=== PATIENT | female | born 1995 | race Caucasian/White ===

== ENCOUNTER 2018-02-16 18:53 | Emergency (ER) | payer OTHER, SELFPAY ==
[2018-02-16 18:55] VITALS: BP 141/89; PULSE 72; RESP 16; TEMP 37.2; O2SAT 100; BMI 35.9
--- NOTE | 2018-02-16 21:07 | CT_ITS ---
STUDY: CT ABDOMEN AND PELVIS WITHOUT CONTRAST REASON FOR EXAM: Female, 22 years old. Pain in upper abdomen. RADIATION DOSAGE (If Supplied By Facility): CTDIvol = ( 17.40 ) mGy, DLP = ( 925.72 ) mGycm TECHNIQUE: Transaxial images were obtained from the dome of the diaphragm to the symphysis pubis without oral contrast, and without intravenous contrast. Sagittal and coronal images were reconstructed. Individualized dose optimization techniques were used for this CT. COMPARISON: None. FINDINGS: The visualized lung bases are unremarkable. The visualized portions of the heart are within normal limits. Normal liver. Normal gallbladder and extrahepatic biliary system. Normal spleen. Normal pancreas. Normal bilateral adrenal glands. Normal right kidney. Normal left kidney. Normal visualized stomach. Normal small intestine. Normal colon. The appendix is visualized and appears normal. Normal abdominal aorta. Normal inferior vena cava. Normal retroperitoneum. Normal urinary bladder. Normal visualized uterus. Normal abdominal wall. Normal osseous structures. CT/Abdomen/Pel W ORAL Cont Only IMPRESSION: No evidence of acute intra-abdominal process or focal inflammation. Electronically Signed: Irineo Durand DO at 23:33 EDT , Service support ,
[2018-02-16 21:36] VITALS: BP 136/67; PULSE 72; RESP 18; O2SAT 100
[2018-02-16 21:36] LABS: Absolute Lymphocyte Count 1.75 X10^3/ul (0.83-4.51); Absolute Neutrophil Count 4.9 X10^3/uL (2.0-7.7); Basophil# 0.01 X10^3/uL; Basophil% 0.1 % (0-1); Eosinophil# 0.04 X10^3/uL; Eosinophils% 0.6 % (0-5); Hematocrit 37.7 % (37-47); Hemoglobin 12.2 g/dl (12.0-15.0); Lymphocyte # 1.75 X10^3/ul (4.0); Lymphocyte % 24.2 % (19-41); Mean Corp Hgb Conc 32.4 g/gl (32-36); Mean Corpuscular Volume 86.5 fL (81-99); Mean Platelet Vol. 10.4 fl (6.2-12.0); Monocyte% 6.9 % (0-10); Neutrophil # 4.94 X10^3/uL (2.7-7.7); Neutrophil % 68.2 % (47-70); Platelet Count 227 K/mm3 (150-450); RBC Distribution Width CV 14.4 % (11.6-14.6); RBC Distribution Width SD 45.4 fl (35.1-43.9); Red Blood Count 4.36 M/mm3 (4.2-5.4); White Blood Count 7.2 K/mm3 (4.4-11.0)
[2018-02-16 21:39] LABS: Bacteria 0 SEEN /hpf (None Seen); Mucous, Urine 0 SEEN /hpf (<or=2+); Red Blood Cells-Urine 0 SEEN /hpf (0-5); White Blood Cells 0 SEEN /hpf (0-5)
[2018-02-16 21:45] LABS: Color, Urine Yellow (Yellow); Glucose, Dipstick Normal (Normal); Ketone-Dipstick Negative (Negative); Leukocyte Esterase-Dipstick Negative /ul (Negative); Nitrite-Dipstick Negative (Negative); Occult Blood-Urine Negative /ul (Negative); Protein-Dipstick Negative (Negative); Urine Bilirubin Dipstick Negative (Negative); Urine Clarity Clear (Clear); Urine Urobilinogen Normal (Normal)
[2018-02-16 21:53] LABS: ALB/GLOB Ratio 1.2 RATIO (0.9-2.4); AST(SGOT) 14 U/L (15-37); Alanine Aminotransfer ALT/SGPT 17 U/L (13-56); Alkaline Phosphatase 85 U/L (45-117); Anion Gap 5 (5-15); BUN 13 mg/dL (7-18); BUN/Creat Ratio 18.8 RATIO (10-20); Calcium,Total 8.6 mg/dL (8.5-10.1); Chloride 109 mmol/L (98-107); Creatinine, Serum 0.69 mg/dL (0.55-1.02); EST Glomerular Filtration Rate 113 mL/min (>60); Est Glom Filt Rate - Afr Amer 137 mL/min (>60); Estimated Creatinine Clearance 148.83 ml/min; Globulin 3.3 g/dL (2.2-4.2); Glucose 79 mg/dL (74-106); Lipase 103 U/L (73-393); Potassium 3.7 mmol/L (3.5-5.1); Protein, Total 7.3 g/dL (6.4-8.2); Sodium Level 143 mmol/L (136-145)
[2018-02-16 21:55] LABS: Squamous Epithelial Cells - UA 0-5 SEEN /hpf (5-10)
[2018-02-16 21:58] LABS: POSITIVE COUNT NO; POSITIVE DIFFERENTIAL NO; POSITIVE MORPHOLOGY NO
[2018-02-16 21:59] LABS: Pregnancy, Serum, hCG Quali. NEGATIVE Negative (0-9 Nonpreg)
[2018-02-16] MEDS: 0.9% Normal Saline 1,000 ML 125 ML IV (22:01)
[2018-02-16 23:33] VITALS: BP 137/79; PULSE 76; RESP 18; O2SAT 100
--- NOTE | 2018-02-16 23:43 | ED.DCSUM_ITS ---
- ER Visit Summary Date of Service: 02/16/18 Chief Complaint: [Abdominal pain] History of Present Illness: The patient is a 22 F [presents to the emergency department with abdominal pain that started 5 days ago. Patient describes painful swallowing and a burning sensation in her chest. Patient generally feels weak. Patient has had nausea but no vomiting. Patient thinks the food seems to make the discomfort worse. Patient has had pain between her shoulder blades at times. Patient denies any blood in her stool or black tarry stools. Patient has not had a fever. She denies urinary symptoms. She does not think she is .] Physical Examination: [HEENT-PERRLA, EOMI. Cranial nerves II through XII grossly intact. TMs clear. Mucous membranes moist. No adenopathy. Cardiovascular-regular rate and rhythm without murmur or ectopy Lungs-clear to auscultation, chest wall stable without crepitus or subcu emphysema Abdomen-normoactive bowel sounds, soft. Patient has some mild epigastric tenderness on palpation. There is no rebound, rigidity, or perineal signs. Patient has a negative Jaramillo sign. Patient has no McBurney's point tenderness. Extremities-intact ?4, normal range of motion, normal pulses, atraumatic] Test Results: [CBC with differential was normal. Chemistries were normal. LFTs were normal. Urinalysis was normal. HCG was negative. CT scan with p.o. contrast was normal.] Emergency Department Course and Treatment: [Patient received a GI cocktail in the emergency department and had some relief of her symptoms.] Treatment Plan: [Patient will be started on Prevacid and will be referred to general surgeon business functional analyst for no doc.] Disposition: [Discharge. Patient advised to return if worsening pain, fever, vomiting, or condition should worsen in any way.] Impression: [Abdominal pain-etiology uncertain] This note was generated with [employer] dictation software. It may contain incorrect words, spelling, and punctuation that were not noted in review of the chart prior to signing ED Disposition - Plan for ED Patient: Chief Complaint: Abd Pain Referrals: Kar Hardin III, MD [Primary Care Provider] -
--- NOTE | 2018-02-16 23:44 | ED.DEP ---
ED Disposition - Plan for ED Patient: Chief Complaint: Abd Pain Instructions: ED Abdominal Pain Unkn Cause, ED PUD Vs Gastritis Prescriptions: Ondansetron [Zofran Odt] 4 mg PO Q8H PRN PRN #10 tab PRN Reason: Nausea Lansoprazole [Prevacid] 30 mg PO DAILY #30 cap Referrals: Kar Hardin III, MD [Primary Care Provider] - Otto Ren MD [STAFF PHYSICIAN] - 3-5 Days
[2018-02-16 23:59] VITALS: BP 136/74; PULSE 78; RESP 18; O2SAT 100
== END 2018-02-17 00:01 | disposition home or self-care (01) ==
PROVIDERS: Emergency Provider Emergency Medicine; Family Provider Family Medicine; PCP Family Medicine
DX: K29.70 Gastritis, unspecified, without bleeding (principal); R10.13 Epigastric pain; Z72.0 Tobacco use
CPT/HCPCS: 74176; 80053; 81001; 83690; 84703; 85025; 96360; 99283; J7030; A4216

== ENCOUNTER 2018-05-16 04:13 | Observation (INO) | payer OTHER, SELFPAY ==
[2018-05-16] VITALS (10 sets, daily range): BP systolic 116–156; BP diastolic 67–102; PULSE 58–97; RESP 14–18; TEMP 36.3–37.1; O2SAT 96–99; BMI 34.1; BMI 35.4
--- NOTE | 2018-05-16 | APP_PTH ---
PATIENT: OSVALDO CHARLES LOC: [facility] U#:[id number] AGE/SX: ROOM: [facility]322 RE05/16/[address]: Dr. Daria Ott MD : 1995 BED: 1 DIS: 05/16/2018 SPEC #: [id number] RECD: 05/18/18 12:35 STATUS: BAY REQ #: [id number] STEVEN: 05/16/18 00:[address]: Daria Ott DEPT: SURGICAL PATHOLOGY RECD BY: Ino Hill ENTERED: 05/18/18 12:35 SP TYPE: APPENDIX OTHR DR: MD Kar Nichols III, III, MD Tissues: Appendix, NOS Procedures: Surgery Specimen Level III HEADER OPERATION: Laparoscopic appendectomy PRE-OP DIAGNOSIS: Acute appendicitis TISSUE SUBMITTED: Appendix MICROSCOPIC DIAGNOSIS Appendix, appendectomy: Acute necrotizing appendicitis. Acute serositis. AM:erica 05/19/18 MICROSCOPIC DESCRIPTION Slides are reviewed. GROSS DESCRIPTION Received is one container labeled with the patient's name and designated appendix. The specimen consists of a C-shaped appendix measuring 5 cm in length and 0.5 cm in average diameter. The attached periappendiceal adipose tissue measures up to 1.5 cm in width. The serosa is congested. No obvious perforation is identified. The mucosa is congested. The lumen does not contain any fecalith. Specialty Molder sections are submitted in one cassette. / SJ:erica 05/18/18 TC:2 CPT: [id number]
--- NOTE | 2018-05-16 04:27 | CT_ITS ---
STUDY: CT ABDOMEN AND PELVIS WITH CONTRAST REASON FOR EXAM: Female, 22 years old. Abdominal and lower back pain RADIATION DOSAGE (If Supplied By Facility): CTDIvol = ( 14.68 ) mGy, DLP = ( 1003.71 ) mGycm TECHNIQUE: Transaxial 3.75 mm images were obtained from the dome of the diaphragm to the symphysis pubis with oral contrast. 100 ml of Isovue 300 contrast was administered. Multiplanar coronal and sagittal images were reformatted. Individualized Dose Optimization Techniques Were Used For This CT. COMPARISON: CT abdomen pelvis 02/16/2018. FINDINGS: The visualized lung bases are unremarkable. The visualized portions of the heart are within normal limits. Normal liver. Normal gallbladder and extrahepatic biliary system. Normal spleen. Normal pancreas. Normal bilateral adrenal glands. Normal right kidney. Normal left kidney. Normal visualized stomach. Normal small intestine. Normal colon. There is a tubular enlarged retrocecal appendix (> 9 mm), consistent with acute appendicitis. The appendix is indistinct, there is mild periappendiceal fat stranding and scattered ileocolonic lymph nodes. The appendix lumen is not contrast filled. Image 81-89 series 2 image 41-47 series 601 Normal abdominal aorta. No retroperitoneal adenopathy.IVC is patent. Normal urinary bladder. Normal visualized uterus and bilateral adnexa. Trace free fluid in the pelvis, which is likely physiologic. Normal abdominal wall. Obesity. Normal osseous structures. CT/Abdomen/Pelvis WITH Contrast IMPRESSION: Acute early appendicitis without complications. There is no abscess, collection, perforation or obstruction. There is no obstructive uropathy, obstructive renal or ureteral calculi. N.B. : The above information has been verbally conveyed by Delia Rogers MD to Jose Crook on 05/16/2018 06:32:53 (ET). Electronically Signed: Delia Rogers MD at 6:33 EDT , Service support ,
[2018-05-16] MEDS: 0.9% Normal Saline 1,000 ML 1000 ML IV (04:33)
[2018-05-16] MEDS: Ondansetron 4 MG/2 ML Vial IV (04:33)
[2018-05-16 04:36] LABS: Mucous, Urine 0 SEEN /hpf (<or=2+); Red Blood Cells-Urine 0 SEEN /hpf (0-5)
[2018-05-16 04:39] LABS: Absolute Lymphocyte Count 1.99 X10^3/ul (0.83-4.51); Absolute Neutrophil Count 5.4 X10^3/uL (2.0-7.7); Basophil# 0.01 X10^3/uL; Basophil% 0.1 % (0-1); Eosinophil# 0.04 X10^3/uL; Eosinophils% 0.5 % (0-5); Hematocrit 41.5 % (37-47); Hemoglobin 13.2 g/dl (12.0-15.0); Lymphocyte # 1.99 X10^3/ul (4.0); Lymphocyte % 24.5 % (19-41); Mean Corp Hgb Conc 31.8 g/gl (32-36); Mean Corpuscular Hgb 26.3 pg (27.0-32.0); Mean Corpuscular Volume 82.7 fL (81-99); Mean Platelet Vol. 10.3 fl (6.2-12.0); Monocyte# 0.68 X10^3/uL; Monocyte% 8.4 % (0-10); Neutrophil # 5.39 X10^3/uL (2.7-7.7); Neutrophil % 66.4 % (47-70); Platelet Count 228 K/mm3 (150-450); RBC Distribution Width CV 14.1 % (11.6-14.6); RBC Distribution Width SD 42.7 fl (35.1-43.9); Red Blood Count 5.02 M/mm3 (4.2-5.4); White Blood Count 8.1 K/mm3 (4.4-11.0)
[2018-05-16 04:40] LABS: Color, Urine Yellow (Yellow); Glucose, Dipstick Normal (Normal); Ketone-Dipstick Negative (Negative); Leukocyte Esterase-Dipstick 500 /ul (Negative); Nitrite-Dipstick Negative (Negative); Occult Blood-Urine 10 /ul (Negative); Protein-Dipstick 30 mg/dl (Negative); Specific Gravity, Urine 1.015 (1.002-1.030); Urine Bilirubin Dipstick Negative (Negative); Urine Clarity Sl. Cloudy (Clear); Urine Urobilinogen Normal (Normal)
[2018-05-16 04:41] LABS: Internal QC Validated? YES +Cl - CLEAR BKGD; POSITIVE COUNT NO; POSITIVE DIFFERENTIAL NO; POSITIVE MORPHOLOGY NO; Pregnancy, Urine Negative Negative
[2018-05-16 04:45] LABS: Anion Gap 8 (5-15); BUN 6 mg/dL (7-18); BUN/Creat Ratio 7.1 RATIO (10-20); Bacteria 1+ /hpf (None Seen); Calcium,Total 9.3 mg/dL (8.5-10.1); Chloride 103 mmol/L (98-107); Creatinine, Serum 0.85 mg/dL (0.55-1.02); EST Glomerular Filtration Rate 89 mL/min (>60); Est Glom Filt Rate - Afr Amer 108 mL/min (>60); Estimated Creatinine Clearance 120.82 ml/min; Glucose 101 mg/dL (74-106); Potassium 3.3 mmol/L (3.5-5.1); Sodium Level 142 mmol/L (136-145); Squamous Epithelial Cells - UA 0-5 SEEN /hpf (5-10)
[2018-05-16 04:46] LABS: White Blood Cells 5-10 SEEN /hpf (0-5)
--- NOTE | 2018-05-16 06:42 | ED.VISSUMM ---
- ER Visit Summary Date of Service: 05/16/18 Chief Complaint: Abdominal pain History of Present Illness: The patient is a 22 F who presents with abdominal pain. It is been present for 1 day. She reports chills and sweats at home but did not check her temperature. She initially had mid abdominal and lower abdominal pain to be localizing to the right lower abdomen. She does have some pain on the left however pain is greatest in the right lower quadrant. She also reports dysuria and right lower quadrant abdominal pain with urination. She also complains of some pain across her lower back. Physical Examination: Physical exam afebrile vitals are stable Moist mucous membranes Heart regular rate and rhythm Lungs are clear Abdomen soft nondistended but she does have focal right lower quadrant tenderness without guarding without rebound Test Results: CBC BMP unremarkable. Urinalysis shows 500 leukocyte esterase and 5-[address] the abdomen and pelvis showed early uncomplicated appendicitis per radiology. Emergency Department Course and Treatment: Patient was treated with IV fluids, morphine, Zofran, Cefotetan. Patient was discussed with general surgery and will be admitted under their service for further management. Treatment Plan: [] Disposition: Admit Impression: Acute appendicitis This note was generated with [employer] dictation software. It may contain incorrect words, spelling, and punctuation that were not noted in review of the chart prior to signing ED Disposition - Plan for ED Patient: Chief Complaint: Complaint Referrals: Kar Hardni III, MD [Primary Care Provider] -
[2018-05-16] MEDS: Morphine 4 MG/ML Syringe IV ×2 (06:49→12:40)
--- NOTE | 2018-05-16 08:26 | HP.PCM_ITS ---
History and Physical Date of Admission: 05/16/18 Chief Complaint: abdominal pain History of Present Illness: 22 y/o otherwise healthy WF presents with abdominal pain. Started evening at around 7 pm, patient laid in bed all day on Friday, hoping the pain would resolve. Has primarily been lower right sided. Has nausea, denies emesis. Does note constipation, Denies fevers. Presented to ED. Had normal WBC with no left shift of differential. Was afebrile. CT scan - early uncomplicated appendicitis per radiology verbal report Past Medical History: denies major medical illnesses Past Surgical History: denies previous surgery Medications: denies taking chronic medications Allergies: Has no known drug allergies Social history: TOB use denies lives in the [facility] Review of Systems: General - denies fevers, denies weight loss Cardiovascular denies chest pain, denies history of heart attack Pulmonary denies shortness of breath, denies coughing up blood Gastrointestinal as per HPI, denies blood in stools Neurological denies numbness/weakness of extremities, denies seizures Genitourinary denies burning with urination, denies blood in urine Hematological denies spontaneous/prolonged bleeding Skin denies open nonhealing wounds Musculoskeletal denies history of fractures, denies arthritis Endocrine denies diabetes Psychological denies suicidal ideation, denies hallucinations Physical examination: Vital signs Temp 96.6F BP 121/69 General WD/WN WF in no apparent distress, alert and oriented, not septic appearing HEENT Normocephalic. EOM intact with sclera clear and no icterus noted. Neck is supple with no jugular venous distention noted. Trachea is midline. Lungs clear to auscultation. normal breath sounds in all lung gallo. No rales/rhonchi/wheezing noted. No labored breathing noted, such as retractions. No cough heard. Heart normal S1 and S2 auscultated. No rubs/clicks/murmurs noted. Normal size and location by auscultation. Abdomen soft but tender in the right lower quadrant with rebound tenderness , difficult to determine if any masses or organomegaly but CT scan reveals no pathology other than appendix Extremities no calf tenderness noted. No pitting edema noted. Genitourinary/Rectal deferred Skin normal skin integrity. Neurological gait normal, no focal deficits noted. Psychological normal affect, patient is calm and appropriate Impression: right lower quadrant abdominal pain abnormal appendix by CT scan Discussion/Plan: I have discussed the above with the patient and her mother who is present with her. I have offered laparoscopic appendectomy. I have explained the procedure to the patient. I have counseled the patient as to the risks of the procedure, including but not limited to: infection, bleeding, injury to any blood vessels/nerves, scar tissue, injury to any intrabdominal organs, injury to kidney/ureters, injury to bowel/bladder, intraabdominal abscess/bleeding, hernias at incisional sites, wound infections, possible open procedure, complications of anesthesia, postoperative pneumonia/cardiac problems/blood clots etc. the patient understands. She agrees to proceed. I have answered all questions to the patient?s satisfaction and the patient has no further questions.
--- NOTE | 2018-05-16 10:16 | NURSING ---
report called to surgery, pt left for surgery. family at bedside.
[2018-05-16] MEDS: Bupiv/Epi 0.5% Mpf 30 ML Vial (10:46)
--- NOTE | 2018-05-16 11:18 | PCM.IMDPSTOP ---
Immediate Post-Op Note Date of Procedure: 05/16/18 Primary Surgeon/Physician: Daria Ott drill sharpener: NOT,DEFINED Pre-Operative Diagnosis: appendicitis Post-Operative Diagnosis: acute appendicitis Surgery/Procedure Performed:: appendix - dilated, inflamed, injected, no evidence of perforation Description of Surgical Findings:: After informed consent was obtained, the patient was brought into the operating room and placed in the supine position on the operating table. Flowtron stockings were placed on the patient. The patient was then placed under general anesthesia. The patients abdomen was then prepped with a sterile surgical skin preparation and sterile surgical drapes were placed. The infraumbilical skin fold was grasped with penetrating clamps and the skin and subcutaneous tissues were infiltrated with 0.25% marcaine with epinephrine. A transverse skin incision was then made. A Veress needle was then inserted into the intraabdominal cavity and checked to be in the proper position with a normal saline drop test. A CO2 pneumoperitoneum was then created. Once this was achieved, the Veress needle was removed and a 5 mm trocar was placed in its stead. A 5 mm laparoscope was then inserted into the trocar. Careful examination of the intraabdominal contents was then done. There was no evidence of injury to any internal organs from placement of the Veress needle or the trocar. Under direct visualization, a 12mm suprapubic trocar and a 5mm left lower quadrant trocar was then placed into the intraabdominal cavity. The skin and subcutaneous tissues at these sites were first infiltrated with 0.25% marcaine with epinephrine. Attention was then directed to the right lower quadrant. The appendix was visualized. The mesentery of the appendix was taken down by cauterizing the tissue from the free edge to the base of the appendix with the Kleppinger device. Once the base of the appendix was freed of surrounding tissues, then the linear gastrointestinal stapling device was brought into the abdominal cavity via the 12mm port and placed across the base of the appendix. The stapling device was fired, thus stapling across the base of the appendix and transecting it simultaneously. The appendix was then placed in an Endobag and this was brought out through the suprapubic trocar. The appendix was then forwarded to Pathology for analysis. The appendiceal stump was carefully examined. There was no evidence of any active bleeding or fecal leakage. The surrounding tissues were also examined and there was no evidence of any active bleeding or fecal/bile leakage. The intraabdominal cavity was examined and there was no evidence of further inflammation or tissue abnormality. There was no evidence of any peritoneal fluid. The CO2 pneumoperitoneum was released and all trocars were removed intact. The suprapubic fascia was reapproximated with a figure-of-8 vicryl suture. All skin incisions were reapproximated with monocryl suture. Cavilon and steristrips were applied to reinforce skin closure and proper sterile dressings were placed. The patient was then extubated and brought to the Recovery Room in stable condition. Estimated Blood Loss: < 5 ml Specimen's removed: appendix Type of Anesthesia:: General ASA Class: ASA2 Plus Emergency - Admit VTE Documentation VTE Present on Admission: Yes VTE Mechan Device Prophylaxis: SCD's
--- NOTE | 2018-05-16 11:22 | OP.PCM_ITS ---
Report of Operation Date of Procedure: 05/16/18 Pre-Operative Diagnosis: appendicitis Post-Operative Diagnosis: acute appendicitis Surgery/Procedure Performed:: appendix - dilated, inflamed, injected, no evidence of perforation Description of Surgical Findings:: dilated appendix with inflammation and injection, no evidence perforation ecological modeler: NOT,DEFINED Type of Anesthesia:: General Anesthesiologist: Avril Malloy Specimen's removed: appendix Drains: none Estimated Blood Loss (mL): < 5 ml Fluids Replaced: 500 ml RL Description of Procedure: After informed consent was obtained, the patient was brought into the operating room. Appropriate time out protocol was followed. She was then placed in the supine position on the operating table. The patient was then placed under general anesthesia. The patient?s abdomen was then prepped with a sterile surgical skin preparation and sterile surgical drapes were placed. The infraumbilical skin fold was grasped with penetrating clamps and the skin and subcutaneous tissues were infiltrated with local anesthetic. A skin incision was then made. A Veress needle was then inserted into the intraabdominal cavity and checked to be in the proper position with a normal saline drop test. A CO2 pneumoperitoneum was then created. Once this was achieved, the Veress needle was removed and a 5 mm trocar was placed in its stead. A 5 mm laparoscope was then inserted into the trocar. Careful examination of the intraabdominal contents was then done. There was no evidence of injury to any internal organs from placement of the Veress needle or the trocar. Under direct visualization, a 12mm suprapubic trocar and a 5mm slightly left of midline lower quadrant trocar was then placed into the intraabdominal cavity. The skin and subcutaneous tissues at these sites were first infiltrated with local anesthetic. Attention was then directed to the right lower quadrant. The appendix was visualized. It was grossly distended and inflamed. There was no evidence of perforation. The mesentery of the appendix was taken down by cauterizing the tissue from the free edge to the base of the appendix with the Harmonic scalpel. Once the base of the appendix was freed of surrounding tissues, then the linear gastrointestinal stapling device was brought into the abdominal cavity via the 12mm port and placed across the base of the appendix. The stapling device was fired, thus stapling across the base of the appendix and transecting it simultaneously. The appendix was then placed in an Endobag and this was brought out through the suprapubic trocar. The appendix was then forwarded to Pathology for analysis. The appendiceal stump was carefully examined. There was no evidence of any active bleeding or fecal leakage. The surrounding tissues were also examined and there was no evidence of any active bleeding or fecal/bile leakage. The intraabdominal cavity was examined and there was no evidence of further inflammation or tissue abnormality. There was no evidence of any peritoneal fluid. The CO2 pneumoperitoneum was released and all trocars were removed intact. The suprapubic fascia was reapproximated with a figure-of-8 vicryl suture. All skin incisions were reapproximated with monocryl suture. Cavilon and steristrips were applied to reinforce skin closure and proper sterile dressings were placed. The patient was then extubated and brought to the Recovery Room in stable condition. - Complications none noted - Admit VTE Documentation VTE Present on Admission: Yes VTE Mechan Device Prophylaxis: SCD's
--- NOTE | 2018-05-16 12:00 | DCINST_ITS ---
Discharge Diet: No Restrictions - drink plenty of fluids like water Avoid carbonated beverages for a few days Discharge Activity: Return to Normal Activity, May not drive while taking narcotic pain medications. Return to work on:: 05/30/18 Lifting Restrictions: no lifting greater than 20 pounds for 2 weeks Call your doctor if your incision/area has: Continuous Slow Oozing, Foul Smelling Discharge Call your doctor if you observe: Fever of 101 or Higher Additional Dressing/Incision Instructions:: Leave dressings in place. May get wet in shower, do not scrub at the areas. Do not soak - no tub baths/swimming Additional Instructions: ambulate as much as possible may climb stairs drink plenty of fluids avoid carbonated beverages for a couple of days if you become constipated you may take an over the counter laxative Medications to take at Discharge Hydrocodone/Acetaminophen [Blanchard 5-325 Tablet] 1 ea PO Q6H PRN PRN 7 Days #20 tab 05/16/18 Allergies/Adverse Reactions: Allergies No Known Allergies Allergy (Verified 05/16/18 04:16) The following prescriptions were given: Hydrocodone/Acetaminophen [Blanchard 5-325 Tablet] 1 ea PO Q6H PRN PRN 7 Days #20 tab PRN Reason: Pain Primary Care Physician: Kar Hardin III, MD [Primary Care Provider] - Test Results: Test results from this visit will be discussed in further detail at your follow- up appointment, if applicable. Please Follow Up With: Daria Ott MD - call When: to be seen in 7-10 days, please call for date and time, thank you
[2018-05-16] MEDS: Lactated Ringers 1,000 ML 120 ML IV (12:35)
== END 2018-05-16 17:49 | disposition home or self-care (01) ==
LOC: ED 04:52 → MS3 07:02
PROVIDERS: Admitting Provider Surgery; Emergency Provider Emergency Medicine; Family Provider Family Medicine; PCP Family Medicine; Visit Provider Surgery
PROC: 0DTJ4ZZ Resection of Appendix, Percutaneous Endoscopic Approach (ICD-10-PCS; CPT 44970; principal; 2018-05-16 12:00)
DX: K35.80 Unspecified acute appendicitis (principal); E66.9 Obesity, unspecified; Z68.35 Body mass index [BMI] 35.0-35.9, adult; Z71.3 Dietary counseling and surveillance
CPT/HCPCS: 44970; 74177; 80048; 81001; 81025; 85025; 88304; 96361; 96365; 96375; 96376; 99218; 99283; J7030; J7120; Q9967; A4216; G0378; J2405